=== PATIENT | male | born 1970 | race Caucasian/White ===

== ENCOUNTER 2021-08-28 01:17 | Emergency (ER) | payer BC ==
[2021-08-28] MEDS ORDERED: EPINEPHrine 1 MG/ML SDV ONE (01:28)
[2021-08-28] MEDS ORDERED: Dexamethasone 4 MG/ML SDV IVPUSH ONE (01:30)
--- NOTE | 2021-08-28 01:35 | EDM.PDOC ---
ED HPI GENERAL MEDICAL PROBLEM - General Chief Complaint: Allergic Reaction Stated Complaint: ALLERGIC REACTION Time Seen by Provider: 08/28/21 01:25 Source of Information: Reports: Patient History Limitations: Reports: No Limitations - History of Present Illness INITIAL COMMENTS - FREE TEXT/NARRATIVE: Patient is a 50-year-old male presenting to emergency room with a chief comp laint of pain in his throat as well as difficulty swallowing. He feels like his throat is swollen. Patient reports sleeping in a local hotel tonight and awaking suddenly with his sensation. Patient states she did not have any known exposures to anything that would cause this. Patient states he has some mild environmental allergies. He states he has never experienced this before. Patient took some Tylenol with little relief and therefore came into the emergency room. States symptoms are worse when he attempts to swallow his saliva or water. Patient otherwise denies rashes on the skin, nausea, abdominal pain, vomiting. Patient thinks he experiences the pain slightly more on the right side. On questioning, he also does feel like he had a sore throat yesterday but was not this bad. Patient denies taking any sort of antihypertensive medications. Last meal was around 6:30 PM. - Related Data Allergies Allergy/AdvReac Type Severity Reaction Status Date / Time morphine Allergy Hives Verified 08/28/21 01:49 NSAIDS (Non-Steroidal Allergy Difficulty Verified 08/28/21 02:03 Anti-Inflamma Breathing Penicillins Allergy Hives Verified 08/28/21 01:49 pollen extracts Allergy Hives Verified 08/28/21 01:49 Home Meds: Home Meds . [No Known Home Meds] 08/28/21 [History] ED ROS ALLERGIC REACTION - Review of Systems Review Of Systems: See Below Free Text/Narrative/Comment: In addition to that documented in the HPI above, the additional ROS was obtained: Constitutional: Denies fevers or chills Eyes: Denies vision changes ENMT: Per HPI CV: Denies chest pain Resp: Denies SOB GI: Denies vomiting or diarrhea : Denies painful urination MSK: Denies recent trauma Skin: Denies new rashes Neuro: Denies new numbness or tingling or weakness Endocrine: Denies unexpected weight loss Heme: Denies bleeding disorders ED EXAM GENERAL NO PERIP PULSE - Physical Exam Exam: See Below Text/Narrative:: I have reviewed the triage vital signs Const: Well nourished, well developed, appears stated age. No obvious distress. Eyes: Pupils Equal and reactive to light bilaterally, no conjunctival injection HENT: There are some slight asymmetry of the tonsils with the right greater than left. Uvula however is midline and not demonstrating any evidence of edema. Patient's voice is slightly muffled. No tongue swelling. No stridor noted. No signs of trauma or swelling, Neck supple without meningismus CV: Regular Rate Rhythm, Warm, well-perfused extremities RESP: Unlabored respiratory effort GI: soft, non-tender, non-distended, no masses MSK: No gross deformities appreciated Skin: Warm, dry. No rashes. No urticaria. 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 Sensation and motor function of extremities grossly intact. Psych: Appropriate mood and affect. Course - Vital Signs Last Recorded V/S: Last Vital Signs Temp 35.9 C L 08/28/21 01:25 Pulse 59 L 08/28/21 01:25 Resp 17 08/28/21 01:25 BP 134/90 08/28/21 01:25 Pulse Ox 100 08/28/21 01:25 - Orders/Labs/Meds Labs: Laboratory Tests 08/28/21 Range/Units 01:30 Group A Strep (PCR) Not detected (NOT DETECT) Meds: Medications Discontinued Medications Generic Name Dose Route Start Last Admin Trade Name Lucy PRN Reason Stop Dose Admin Dexamethasone 10 mg 08/28/21 01:30 08/28/21 01:35 Dexamethasone 4 Mg/Ml Sdv IVPUSH 08/28/21 01:31 10 mg ONETIME ONE Administration Epinephrine HCl Confirm 08/28/21 01:28 08/28/21 01:33 Epinephrine 1 Mg/Ml Sdv Administered 08/28/21 01:29 Not Given Dose 1 mg .ROUTE .STK-MED ONE Clindamycin Phosphate 6,000 mg 333.3333 mls @ 100 mls/hr 08/28/21 02:18 / Premix IV 08/28/21 05:37 ONETIME ONE Clindamycin Phosphate 600 mg/ 33.3333 mls @ 100 mls/hr 08/28/21 02:49 Premix IV 08/28/21 03:18 ONETIME ONE Clindamycin Phosphate 600 mg/ 54 mls @ 108 mls/hr 08/28/21 03:00 08/28/21 02:58 Sodium Chloride IV 08/28/21 03:29 108 mls/hr ONETIME ONE Administration Ketorolac Tromethamine 30 mg 08/28/21 01:52 08/28/21 02:03 Ketorolac 15 Mg/Ml Sdv IVPUSH 08/28/21 01:53 Not Given ONETIME ONE Departure - Departure Time of Disposition: 04:00 Disposition: Home, Self-Care 01 Clinical Impression: Peritonsillar cellulitis - Discharge Information Instructions: Peritonsillar Cellulitis Referrals: PCP,Not In Area [Primary Care Provider] - Forms: ED Department Discharge Additional Instructions: Monitor symptoms at home and return to the emergency room immediately for inability to swallow liquids or with any difficulty breathing or significant change in voice. Otherwise, I recommend following up with ENT on Sunday for repeat evaluation as well as possible tonsillectomy. Antibiotics as directed. Sepsis Event Note (ED) - Evaluation Sepsis Screening Result: No Definite Risk - Focused Exam Vital Signs: Vital Signs Temp Pulse Resp BP Pulse Ox 08/28/21 01:25 35.9 C L 59 L 17 134/90 100 - Assessment/Plan Assessment:: Patient is 50-year-old male presenting to emergency room with a complaint of sore throat and difficulty swallowing. Patient ER course showed significant improvement. Initially, patient felt unable to swallow water and demonstrated muffled voice. After the administration of dexamethasone and clindamycin in several hours of observation in the emergency room, patient tolerating water and significant improvement with voice. Patient smiling and sitting on the edge of the bed states she feels much improved. Clinically, differential diagnosis include streptococcal pharyngitis, peritonsillar abscess versus cellulitis, epiglottitis, retropharyngeal abscess. Clinically, peritonsillar cellulitis appears to be most consistent as there does not appear to be drainable abscess at this time. Clindamycin can be continued as an outpatient and no indication for emergent imaging at this time. All questions were addressed and answered. Patient agrees with plan of care. Return precautions discussed as usual.
[2021-08-28] MEDS ORDERED: Ketorolac 15 MG/ML SDV IVPUSH ONE (01:52)
[2021-08-28] MEDS ORDERED: CLINDAMYCIN PHOSPHATE IV ONE ×2 (02:18)
[2021-08-28] MEDS ORDERED: D5W IV ONE ×2 (02:18)
[2021-08-28] MEDS ORDERED: Clindamycin Phosphate in D5W 600 MG in Premix Bag 1 BAG IV ONE ×2 (02:49)
== END 2021-08-28 04:14 | disposition home or self-care (01) ==
LOC: JD.ED 01:17
DX: J36 Peritonsillar abscess (principal); Z88.5 Allergy status to narcotic agent; Z88.6 Allergy status to analgesic agent; Z88.0 Allergy status to penicillin; Z91.048 Other nonmedicinal substance allergy status
CPT/HCPCS: 87651; 96365; 96375; 99284; J1100; J3490